=== PATIENT | female | born 1980 | race Caucasian/White ===

== ENCOUNTER 2021-07-16 21:55 | Emergency (ER) | payer SELFPAY ==
[~2021-07-16] VITALS: Ht 170.2 cm; Wt 77.7 kg
[2021-07-16 22:01] VITALS: TEMP 98.5
[2021-07-16 23:04] LABS: COLLECTION METHOD CLEAN CATCH
[2021-07-16 23:22] LABS: BASO % 0.4 % (0.0-2.0); EOS % 0.4 % (0.0-4.0); GRAN # 6.2 K/mm3 (1.4-6.5); GRAN % 75.3 % (42.2-75.2); HEMATOCRIT 39.8 % (37.0-47.0); HEMOGLOBIN 13.6 g/dl (12.5-16.0); LYMPH # 1.4 K/mm3 (1.2-3.4); LYMPH % 17.2 % (20.0-51.0); MEAN CELL VOLUME 92 fl (80.0-100.0); MEAN CORPUSCULAR HEMOGLOBIN 31 pg (27-31); MEAN CORPUSCULAR HGB CONC 34 g/dl (33.0-37.0); MONO # 0.5 K/mm3 (0.1-0.6); MONO % 6.5 % (1.7-9.3); PLATELET COUNT 216 K/mm3 (130-400); RED BLOOD COUNT 4.35 M/mm3 (4.10-5.30); REDCELL DISTRIBUTION WIDTH-CV 12.6 % (11.5-14.5)
[2021-07-16 23:22] LABS: MUCOUS Present (NOT PRESENT); PH 6 (5-8); URINE APPEARANCE Hazy (CLEAR/HAZY); URINE BACTERIA Occasional /hpf (NONE SEEN); URINE BILIRUBIN Negative (NEGATIVE); URINE BLOOD Negative (NEGATIVE); URINE COLOR Yellow (YELLOW); URINE GLUCOSE Negative (NEGATIVE); URINE KETONE Negative (NEGATIVE); URINE LEUKOCYTE ESTERASE 2+ (NEGATIVE); URINE NITRATE Positive (NEGATIVE); URINE PROTEIN(semi-quant) Negative (NEGATIVE); URINE RBC 0-2 /hpf (0-2); URINE UROBILINOGEN Negative (NEGATIVE)
[2021-07-16 23:23] LABS: TRICYCLIC ANTIDEPRESS URINE NEGATIVE
[2021-07-16 23:40] LABS: ALANINE AMINOTRANSFERASE 9 U/L (0-55); ALBUMIN 4.1 gm/dL (3.5-5.0); ALKALINE PHOSPHATASE 65 U/L (40-150); ANION GAP 11 mmol/L (7-16); AST,SGOT 11 U/L (5-34); BILIRUBIN,TOTAL 0.7 mg/dL (0.2-1.2); BLOOD UREA NITROGEN 21 mg/dL (7-19); CALCIUM 8.8 mg/dL (8.4-10.2); CARBON DIOXIDE 24 mmol/L (22-29); CHLORIDE 104 mmol/L (98-107); GLUCOSE 109 mg/dL (70-99); POTASSIUM 3.9 mmol/L (3.5-4.5); SODIUM 139 mmol/L (136-145); TOTAL PROTEIN 6.9 gm/dL (6.2-8.1)
[2021-07-16] MEDS ORDERED: CEPHALEXIN500 M1 PO (23:58)
[2021-07-16] MEDS ORDERED: KEPPRA 500MG500 MG PO (23:58)
[2021-07-17 00:09] LABS: TSH w REFLEX 1.011 uIU/mL (0.350-4.940)
[2021-07-17 00:13] LABS: TROPONIN-I < 0.010 ng/mL (0.00-0.033)
[2021-07-17 00:15] VITALS: BP 142/78; PULSE 70
== END 2021-07-17 00:15 | disposition home or self-care (01) ==
LOC: COL.ER 21:55
PROVIDERS: Emergency Medicine
DX: R56.9 Unspecified convulsions (principal); N39.0 Urinary tract infection, site not specified; Z28.310 Unvaccinated for COVID-19

== ENCOUNTER 2021-10-06 22:15 | Emergency (ER) | payer SELFPAY ==
[~2021-10-06] VITALS: Ht 170.2 cm; Wt 76.4 kg
[~2021-10-06 22:15] MED LIST: CEPHALEXIN500 M1 PO; KEPPRA 500MG500 MG PO
[2021-10-06 22:33] VITALS: TEMP 98.1
[2021-10-06 23:06] LABS: BASO # 0.1 K/mm3 (0.0-0.2); BASO % 0.6 % (0.0-2.0); EOS # 0.1 K/mm3 (0.0-0.7); GRAN # 6.7 K/mm3 (1.4-6.5); HEMOGLOBIN 14.4 g/dl (12.5-16.0); LYMPH % 21.2 % (20.0-51.0); MEAN CELL VOLUME 90 fl (80.0-100.0); MEAN CORPUSCULAR HEMOGLOBIN 32 pg (27-31); MEAN CORPUSCULAR HGB CONC 35 g/dl (33.0-37.0); MONO # 0.6 K/mm3 (0.1-0.6); MONO % 5.9 % (1.7-9.3); PLATELET COUNT 232 K/mm3 (130-400); RED BLOOD COUNT 4.57 M/mm3 (4.10-5.30); REDCELL DISTRIBUTION WIDTH-CV 12.1 % (11.5-14.5)
[2021-10-06 23:27] LABS: ALBUMIN 4.1 gm/dL (3.5-5.0); BILIRUBIN,TOTAL 0.5 mg/dL (0.2-1.2); CALCIUM 9.4 mg/dL (8.4-10.2); CREATININE, serum 0.82 mg/dL (0.57-1.11); TOTAL PROTEIN 7.1 gm/dL (6.2-8.1)
[2021-10-07] MEDS ORDERED: NORCO 325 MG-51 TAB PO (01:13)
[2021-10-07] MEDS ORDERED: ZOFRAN ODT4 MG PO (01:13)
[2021-10-07 01:20] VITALS: BP 131/81; PULSE 89
== END 2021-10-07 01:21 | disposition home or self-care (01) ==
LOC: COL.ER 22:15
PROVIDERS: Personal Emergency Response Attendant
DX: R10.2 Pelvic and perineal pain (principal); Z32.02 Encounter for pregnancy test, result negative
CPT/HCPCS: J1790; J2270; J2405; J7030; Q9967